=== PATIENT | male | born 1990 | race Caucasian/White ===

== ENCOUNTER 2022-01-06 10:44 | Emergency (ER) | payer OTHER, SELFPAY ==
[2022-01-06 10:46] VITALS: BP 141/92; PULSE 79; RESP 18; TEMP 37.1; O2SAT 100; BMI 17.6
--- NOTE | 2022-01-06 11:16 | RAD_ITS ---
STUDY: X-RAY - LEFT WRIST REASON FOR EXAM: Male, 31 years old. Trauma TECHNIQUE: 3 view(s) of the wrist were obtained. COMPARISON: Comparison is made with prior study dated 06/17/2014. FINDINGS: Normal visualized distal radius and ulna. Normal radiocarpal articulation. Normal distal radioulnar articulation. Normal carpal bones. Normal carpal articulations. Normal carpometacarpal articulation of the thumb. Normal second through fifth carpometacarpal articulations. Normal visualized metacarpal bones. Soft tissue swelling. RAD/Wrist min 3 Views IMPRESSION: Soft tissue swelling. Electronically Signed: Dru Dewitt MD at 12:17 EST ,
--- NOTE | 2022-01-06 11:17 | EDS_ITS ---
HPI History of Present Illness Chief Complaint: Upper Extremity Injury Informant: patient Narrative Narrative: Patient presents to injury to his left upper extremity. He is right- hand dominant. Last tetanus was about a year ago. He states he was using a table saw on a piece of wood bound and shot back and hit his hand and wrist area. He did not hit the table saw. He has abrasions to the dorsum of the left hand and most of his pain is in that area over the left thumb/first metacarpal. He does have a laceration and abrasion to the left dorsal lateral wrist but would prefer it may not be sutured. No active bleeding. He states other than these areas he has no pain or any complaints. Keeping it still makes it better and moving or pressing on it makes it worse. PFSH PFSH Medical History ADHD Medical History no medical history Home Medications naproxen [Naprosyn] 500 mg PO BID #10 tab 04/08/16 [Rx Last Taken Unknown] Allergy/AdvReac Type Severity Reaction Status Date / Time gabapentin [From Neurontin] AdvReac Other Verified 01/06/22 10:48 pregabalin [From Lyrica] AdvReac Other Verified 01/06/22 10:48 Social History Smoking Status: Current every day smoker tobacco type: cigarettes ROS ROS ED Constitutional Constitutional ED: Denies fever(s) Musculoskeletal Musculoskeletal: Reports other Details: See history of present illness. ; Denies back pain or neck pain Integumentary Reports Abrasions and other Details: Abrasion and small laceration to the left wrist as in history of present illness. Neurologic Neurologic: Denies paresthesias or weakness Hematologic/Lymphatic Hematologic/Lymphatic: Denies easy bleeding or easy bruising EXAM Physical Exam Const Vital Signs: 01/06/22 10:46 Temperature 98.7 F Temperature Source Temporal Pulse Rate 79 Respiratory Rate 18 Blood Pressure 141/92 H Blood Pressure Mean 108 Pulse Ox 100 Oxygen Delivery Method Room Air Positive well nourished and well developed General Appearance ED: well developed and NAD HEENT normocephalic and atraumatic Neck full ROM and supple Chest Wall inspection of chest normal Resp normal respiratory effort GI non-tender and non-distended Palpation: soft Extremity Extremity Narrative: Patient has abrasions on the dorsum of the hand overlying the first metacarpal area. No deformity or notable swelling at this time. He has abrasion just proximal to the wrist on the dorsal lateral area of the radius. There is abrasions in that area. There is also about a 1.5 cm la ceration to it. This is open about 5 mm. There is no active bleeding. No visible tendon. The area has been cleaned. Neuro oriented x3, moves all extremities and no sensory deficits noted Sensorium / Orientation: alert Skin Skin Narrative: See above. Trauma: abrasion and laceration MDM MDM MDM Narrative Medical decision making narrative: Patient's x-ray shows soft tissue swelling but no sign of acute fracture the wrist or hand. You will be placed in a splint for comfort for a few days. He does not want the laceration sutured. This is small and that is reasonable. We discussed can continuing to clean it intermittently throughout the day and keep it covered. We discussed returning with signs of infection. Discharge Plan Triage Chief Complaint: Upper Extremity Injury ED Provider: Varinder Steven Dx/Rx/DC Orders Clinical Impression: Contusion of hand, Contusion of left wrist, Laceration of left wrist Instructions: ED Contusion, Upper Extremity, ED Laceration Small or ... Prescriptions: No Action naproxen [Naprosyn] 500 MG tablet 500 mg PO BID Qty: 10 RF: 0 Primary Care Provider: Care Physician,No Primary Referrals: Radha Collins DO [STAFF PHYSICIAN] - 3-5 Days if not improving Care Physician,No Primary [Primary Care Provider] - Disposition Disposition: Home, Self Care
--- NOTE | 2022-01-06 11:58 | RAD_ITS ---
STUDY: X-RAY - LEFT HAND REASON FOR EXAM: Left hand pain, left hand injury. TECHNIQUE: 3 view(s) of the hand. COMPARISON: None. FINDINGS: Normal radiocarpal articulation. Normal distal radioulnar joint. Normal visualized carpal bones. Normal carpal articulations Normal carpometacarpal articulation of the thumb. Normal second through fifth carpometacarpal joints. Normal metacarpi. Normal metacarpophalangeal joint of the thumb. Normal interphalangeal joint of the thumb. Normal proximal and distal phalanges of the thumb. Normal metacarpophalangeal joints of the second through fifth fingers. Normal proximal and distal interphalangeal joints of the second through fifth fingers. Normal phalanges of the second through fifth fingers. There is mild dorsal soft tissue swelling. RAD/Hand Min 3 Views IMPRESSION: No demonstrated left hand fracture. Electronically Signed: Hans Alva MD at 12:29 EST ,
[2022-01-06] MEDS: oxyCODONE 5 MG Tablet PO (12:07)
[2022-01-06 12:53] VITALS: BP 132/79; PULSE 81; RESP 14; O2SAT 98
== END 2022-01-06 12:59 | disposition home or self-care (01) ==
PROVIDERS: Emergency Provider Emergency Medicine; Visit Provider Emergency Medicine
DX: S61.512A Laceration without foreign body of left wrist, initial encounter (principal); S60.212A Contusion of left wrist, initial encounter; S60.222A Contusion of left hand, initial encounter; W20.8XXA Other cause of strike by thrown, projected or falling object, initial encounter; Y93.89 Activity, other specified; Y99.8 Other external cause status; F17.210 Nicotine dependence, cigarettes, uncomplicated
CPT/HCPCS: 73110; 73130; 99283

== ENCOUNTER 2023-08-12 07:50 | Emergency (ER) | payer OTHER, SELFPAY ==
[2023-08-12 07:53] VITALS: BP 127/74; PULSE 108; RESP 16; TEMP 36.1; O2SAT 91; BMI 18.6
--- NOTE | 2023-08-12 08:22 | RAD_ITS ---
STUDY: X-RAY - PELVIS AND LEFT HIP REASON FOR EXAM: Male, 33 years old. Left hip pain following injury. TECHNIQUE: 3 views of the pelvis and hip. COMPARISON: None. FINDINGS: There is a non-specific bowel gas pattern. Normal visualized soft tissue structures. Normal bilateral iliac wings, sacroiliac joints and visualized sacrum. Normal bilateral superior and inferior pubic rami. Normal pubic symphysis. Normal bilateral ischial tuberosities. Normal visualized femoral head. Normal acetabulum. Normal hip joint. RAD/HIP, UNI W/ Pelvis 2-3 Views IMPRESSION: Normal x-ray examination of the pelvis and hip. Electronically Signed: Dru Dewitt MD at 9:02 EDT ,
--- NOTE | 2023-08-12 08:22 | EX.ED.GENINJ ---
HPI History of Present Illness Chief Complaint: Trauma Informant: patient Narrative Narrative: 33-year-old male with remote history of inguinal hernia repair on the left as a child presenting with a left hip injury. Patient was at work and him and another person were pulling 6 x 6 piece of wood that was approximate 150 pounds off of the conveyor belt. He was stepping backwards and tripped and then fell backwards. His into the board landed on his pelvic area mostly in the left hip. He does have some pain in that area, points to his groin region. Has not urinated since but does not feel like there is any issues with urination. Denies any numbness or tingling of his legs. He is able to walk. Because this current work came in to be evaluated further from a Workmen's Compensation standpoint. [facility] Medical History ADHD Home Medications naproxen 500 mg tablet (Naprosyn) 500 mg PO BID #10 tabs 04/08/16 [Rx Last Taken Unknown] naproxen 500 mg tablet (Naprosyn) 500 mg PO BID PRN pain #14 tabs 01/06/22 [Rx Last Taken Unknown] Allergy/AdvReac Type Severity Reaction Status Date / Time gabapentin [From Neurontin] AdvReac Other Verified 08/12/23 07:53 pregabalin [From Lyrica] AdvReac Other Verified 08/12/23 07:53 Surgical History Hx of hernia repair Social History Smoking Status: Current every day smoker tobacco type: cigarettes ROS ROS ED Constitutional Constitutional ED: Denies chills or fever(s) Eyes Eyes: Denies change in vision Gastrointestinal Gastrointestinal: Denies abdominal pain, nausea or vomiting Genitourinary Genitourinary ED: Denies dysuria Musculoskeletal Musculoskeletal: Reports other Details: Left hip pain Integumentary Denies Abrasions or rash Neurologic Neurologic: Denies paresthesias or weakness Psychiatric Psychiatric: Denies anxiety Hematologic/Lymphatic Hematologic/Lymphatic: Denies easy bleeding EXAM Physical Exam Const Vital Signs: 08/12/23 07:53 08/12/23 08:08 Temperature 96.9 F L Temperature Source Temporal Pulse Rate 108 H Respiratory Rate 16 Respiratory Effort Normal Non-Labored Blood Pressure 127/74 H Blood Pressure Mean 91 Pulse Ox 91 Oxygen Delivery Method Room Air Positive well nourished and well developed General Appearance ED: well developed and NAD HEENT atraumatic Eyes PERRL Neck full ROM Chest Wall inspection of chest normal Resp normal respiratory effort GI normal to inspection, nondistended, normoactive bowel sounds and non-tender GI Narrative: Normal left inguinal area, no tenderness, bulge or hernia appreciated Extremity full ROM Extremity Narrative: Deformity of the lower extremities. Pelvis is stable. No pinpoint tenderness over the greater trochanter or pelvis. Patient does have pain with range of motion of the hip however range of motion is preserved. Neuro oriented x3, moves all extremities and no focal motor deficits Psych mental status grossly normal and thought process normal Skin Skin Narrative: Of very small superficial abrasion/area of erythema to the left anterior hip MDM MDM MDM Narrative Medical decision making narrative: Is evaluated for left hip pain after a fall. The pain seems more from a large wooden board falling on his hip. He appears nontoxic no acute distress. He does have some pain with range of motion. Vital signs are significant for mild tachycardia however he overall is well-appearing. Declines any pain medication in the emergency room. X-ray obtained to rule out pelvic fracture or subtle acetabular/hip fracture. This is negative. I suspect this is more of a hip contusion. Instructed to follow-up outpatient with Workmen's Comp. and to alternate ibuprofen at home as needed for discomfort. Physical exam is not consistent with hernia. Given return precautions. Discharged home in stable condition. Radiography X-Ray: Left Hip, Read by ED Physician, Read by Radiologist, Normal, No Fracture and Normal Bony Alignment Diagnostic Testing: Clinical Impression(s) from Imaging Studies Hip/Pelvis X-Ray 08/12/23 08:22 IMPRESSION: Normal x-ray examination of the pelvis and hip. Electronically Signed: Dru Dewitt MD at 9:02 EDT , Discharge Plan Triage Chief Complaint: Trauma ED Provider: Godman,Juani Dx/Rx/DC Orders Clinical Impression: Contusion of hip, left Instructions: ED Hip Contusion Prescriptions: No Action naproxen [Naprosyn] 500 MG tablet 500 mg PO BID Qty: 10 0RF naproxen [Naprosyn] 500 mg tablet 500 mg PO BID PRN (Reason: pain) Qty: 14 0RF Primary Care Provider: Care Physician,No Primary Referrals: [facility] [Group of Physicians] - 3-5 Days if not improving Care Physician,No Primary [Primary Care Provider] - Activity Restrictions/Additional Instructions: Alternate ibuprofen and Tylenol as needed. He can return to duty as tolerated. [facility] if you have continued pain. I did not show any broken bones or dislocations. Disposition Disposition: Home, Self Care
[2023-08-12 09:39] VITALS: RESP 16
== END 2023-08-12 09:39 | disposition home or self-care (01) ==
PROVIDERS: Emergency Provider Emergency Medicine; Visit Provider Emergency Medicine
DX: S70.02XA Contusion of left hip, initial encounter (principal); F17.210 Nicotine dependence, cigarettes, uncomplicated; Y99.0 Civilian activity done for income or pay; W01.0XXA Fall on same level from slipping, tripping and stumbling without subsequent striking against object, initial encounter
CPT/HCPCS: 73502; 99283